=== PATIENT | female | born 1950 | race Caucasian/White ===

== ENCOUNTER 2017-01-09 00:02 | Emergency (ER) | payer OTHER ==
--- NOTE | ~2017-01-09 | EKG ---
PATIENT: SLADE BARKER UNIT #: [id number] Ventricular Rate: 51 BPM Atrial Rate: 51 BPM P-R Interval: 122 ms QRS Duration: 80 ms Q-T Interval: 498 ms QTC Calculation(Bezet): 458 ms Calculated R [place]: 5 degrees Calculated T [place]: 14 degrees Diagnosis Line: Sinus bradycardia Diagnosis Line: Otherwise normal ECG Diagnosis Line: When compared with ECG of 15-AUG-2009 15:15, Diagnosis Line: Vent. rate has decreased BY 47 BPM Diagnosis Line: Non-specific change in ST segment in Lateral leads Diagnosis Line: Nonspecific T wave abnormality no longer evident Diagnosis Line: in Lateral leads Diagnosis Line: Confirmed by MARKEL RASMUSSEN MD ([id number]) on Diagnosis Line: 01/09/2017 8:23:13 AM INTERPRETING MD: VALERY SMITH
--- NOTE | ~2017-01-09 | CR72 ---
[facility] A Service of [facility] & [facility] RADIOLOGY TEXT RESULTS PATIENT: SLADE BARKER LOCATION: [facility] : 46 UNIT #: [id number] AGE: [address]: Aguilar Ventura MD SEX: F ORDER DR: [id number] [facility] [address] [place], [place] [address] [id number] E MR#: [id number] Acc #: [id number] NAME: SLADE BARKER : 1950 SEX: F STUDY DATE/TIME: 01/09/2017 0:22 UNIT: [facility] ROOM: STUDY DESCRIPTION: CR Chest Single View Portable Attending Physician: Aguilar Ventura M.D. Ordering Physician: Aguilar Ventura M.D. Primary Care Physician: No Primary Care Physician MEDICAL IMAGING REPORT This report is preliminary unless electronic signature is present EXAM Single view chest. INDICATIONS Hypertension. Dizziness and bradycardia for 1 day. FINDINGS Single portable AP view of the chest compared to 08/15/2009. Heart and mediastinal contours are unchanged. Patient status post CABG. No new pulmonary opacities. No pneumothorax or pleural effusion. IMPRESSION No acute cardiopulmonary findings or significant interval change. Dictated by... Luis Daniel Britton M.D. THIS IS AN ELECTRONICALLY VERIFIED REPORT Luis Daniel Britton M.D. at 01/09/2017 11:39 PM RPCailin/vicki TD: 01/09/2017 10:52 JOB #: [id number] MEDICAL IMAGING REPORT Page 1 of 1 COPY
[~2017-01-09 00:02] MED LIST: AGGRENOX PO; ALBUTEROL17 GM INH; ALTACE; ASPIRIN EC81 M1 PO; ASPIRIN PO; ATORVASTATIN CA80 MG PO; BENZONATATE PO; CLARITIN10 MG PO; CRESTOR PO; DARVOCET-N 1001 TAB; DARVOCET-N 1001 TAB PO; DOXEPIN HCL50 MG PO; FLEXERIL; FLEXERIL PO; FLEXERIL10 MG PO; FUROSEMIDE40 MG PO; HCTZ; HYDROCODONE-A1 UDTA4 PO; IMDUR PO; ISORDIL10 MG PO; KCL PO; LASIX PO; LIPITOR PO; LISINOPRIL PO; LOPRESSOR PO; LORATADINE PO; MEDROL PO; METOPROLOL SUCC25 MG PO; MICRO-K PO; MOBIC PO; NAPROSYN250 M1 PO; NEXIUM; NEXIUM PO; NITROGYLCERIN SUBLINGUAL; OMEPRAZOLE40 M1 PO; PAROXETINE HCL20 M1 PO; PHENERGAN PO; PLAVIX PO; PRILOSEC PO; SUPER B COMPLEX1 CAP PO; TRAZODONE; TRAZODONE PO; VICODIN 5/500 T1 TAB PO; VITAMIN B COMPLEX PO; VITAMIN C500 M1 PO; VITAMIN D1000 UNI1 PO
[2017-01-09 00:41] LABS: BASOPHIL% 0.4 % (0-2.5); EOSINOPHIL# 0.1 X10e3 (0-0.7); HEMATOCRIT 37.8 % (35.0-45.0); HEMOGLOBIN 12.4 gm/dL (12.0-16.0); LYMPHOCYTE# 1.9 X10e3 (1.0-3.5); LYMPHOCYTE% 22.3 % (17.0-45.0); MEAN CELL VOLUME 89.4 FL (83-96); MEAN CORPUSCULAR HEMOGLOBIN 29.2 PG (28-34); MEAN CORPUSCULAR HGB CONC 32.7 g/dL (30-36); MEAN PLATELET VOLUME 8.2 FL (6.5-11.5); MONOCYTE# 0.6 X10e3 (0-1.0); MONOCYTE% 6.7 % (3.0-12.0); NEUTROPHIL# 6.1 X10e3 (1.5-7.1); NEUTROPHIL% 69.6 % (40-75); PLATELET COUNT 135 X10e3 (140-420); RED BLOOD COUNT 4.23 X10e (3.90-5.30); RED CELL DISTRIBUTION WIDTH 14.4 % (11.0-15.5); WHITE BLOOD COUNT 8.7 X10e3 (4.0-10.5)
[2017-01-09 00:44] LABS: DIFF IND NO
[2017-01-09 00:49] LABS: POC - CKMB <1.0 ng/mL (0.0-7.9); POC - TROPONIN <0.05 ng/mL (<=0.05)
[2017-01-09 01:08] LABS: ALBUMIN SERUM 3.7 g/dL (3.5-5.0); BILIRUBIN, DIRECT 0.1 mg/dL (0.0-0.2); BILIRUBIN,INDIRECT 0.5 mg/dL (0.0-0.9); BILIRUBIN,TOTAL 0.6 mg/dL (0.2-2.0); BUN/CREATININE RATIO 13.63; CALCIUM SERUM 8.4 mg/dL (8.4-10.2); CREATININE SERUM 1.1 mg/dL (0.6-1.4); GLOM FILT RATE Estimated 51.6 mL/min (>60); POTASSIUM 3.3 mmol/L (3.5-5.1); PROTEIN TOTAL SERUM 5.9 g/dL (6.0-8.3)
[2017-01-09 01:15] LABS: URINE SOURCE CLEAN CATCH
[2017-01-09 01:24] LABS: URINE APPEARANCE CLEAR; URINE BILIRUBIN NEG (NEG); URINE BLOOD NEG (NEG); URINE COLOR YELLOW; URINE GLUCOSE NEG (NEG); URINE KETONE NEG (NEG); URINE LEUKOCYTE ESTERASE 2+ (NEG); URINE NITRATE NEG (NEG); URINE PROTEIN NEG (NEG); URINE UROBILINOGEN 0.2 MG/DL (NEG)
[2017-01-09 01:27] LABS: CULTURE INDICATED? YES; URINE BACTERIA AUWI 1+ (NEGATIVE); URINE SQUAMOUS EPITHELIAL CELL OCC /[HPF]; UWBCS1 AUWI 25-50 (0-5)
[2017-01-09 02:16] LABS: POC - CKMB <1.0 ng/mL (0.0-7.9); POC - TROPONIN <0.05 ng/mL (<=0.05)
== END 2017-01-09 03:43 | disposition home or self-care (01) ==
LOC: CED 00:02
PROVIDERS: Emergency Medicine
DX: I95.9 Hypotension, unspecified (principal); N39.0 Urinary tract infection, site not specified; R00.1 Bradycardia, unspecified; I25.10 Atherosclerotic heart disease of native coronary artery without angina pectoris; G40.909 Epilepsy, unspecified, not intractable, without status epilepticus; Z95.1 Presence of aortocoronary bypass graft; F17.200 Nicotine dependence, unspecified, uncomplicated; Z88.5 Allergy status to narcotic agent; Z88.8 Allergy status to other drugs, medicaments and biological substances
CPT/HCPCS: 36415; 71010; 80048; 80076; 81003; 82553; 82947; 84484; 85025; 87086; 93005; 96361; 96374; 99284; J0696